=== PATIENT | female | born 1970 | race Caucasian/White ===

== ENCOUNTER 2016-07-18 09:57 | Day surgery (SDC) | payer OTHER ==
--- NOTE | ~2016-07-18 | EGD ---
EGD REPORT [facility] [address] [address] NAME: AIDA WALLS : [birth year] STATUS : REG [facility]#: [id number] AGE: 46 ADM/REG DATE : 07/18/16 MR#: [id number] REPORT SERV DATE: 07/18/16 DICTATED BY: KOLTON COMBS DATE: 07/18/16 REPORT STATUS : Draft TRANSCRIBED BY: [employer] DATE: 07/18/16 [facility] Patient Name: Aida Walls Date of : 1970 Attending MD: KOLTON COMBS MD Procedure Date No Time: 07/18/2016 Procedure: Upper GI endoscopy Indications: Abdominal pain in the right upper quadrant, Nausea Referring MD: SRAVANTHI PAGE III, MD, ROSINA CHERY Medicines: as per anesthesia Complications: No immediate complications. Procedure: Pre-Anesthesia Assessment: - ASA Grade Assessment: III - A patient with severe systemic disease. After obtaining informed consent, the endoscope was passed under direct vision. Throughout the procedure, the patient's blood pressure, pulse, and oxygen saturations were monitored continuously. The GIF H190 [id number] was introduced through the mouth, and advanced to the third part of duodenum. The upper GI endoscopy was accomplished without difficulty. The patient tolerated the procedure. Findings: The examined esophagus was normal. The entire examined stomach was normal. The cardia and gastric fundus were normal on retroflexion. The examined duodenum was normal. Impression: - Normal esophagus. - Normal stomach. - Normal examined duodenum. Recommendation: - Continue present medications. Procedure Code(s): --- Professional --- 01281, Esophagogastroduodenoscopy, flexible, transoral; diagnostic, including collection of specimen(s) by brushing or washing, when performed (separate procedure) Diagnosis Code(s): --- Professional --- R10.11, Right upper quadrant pain R11.0, Nausea EGD REPORT [facility] [address] [id number] NAME: AIDA WALLS : [birth year] [place]US : [place] [facility] [place] [id number] AGE: 46 ADM/REG DATE : 07/18/16 MR#: [id number] REPORT SERV DATE: 07/18/16 DICTATED BY: KOLTON COMBS. DATE: 07/18/16 REPORT STATUS : Draft TRANSCRIBED BY: [employer] DATE: 07/18/16 CPT copyright 2013 [employer]. All rights reserved. The codes documented in this report are preliminary and upon cold press operator review may be revised to meet current compliance requirements. KOLTON COMBS MD 07/18/2016 11:37 AM This report has been signed electronically. Number of Addenda: 0 Note Initiated On: 07/18/2016 11:24 AM Scope Withdrawal Time 0 hours 0 minutes 0 seconds [id number] [id number]
--- NOTE | ~2016-07-18 | EGD ---
EGD REPORT [facility] [address] [address] NAME: AIDA WALLS : [birth year] STATUS : [facility]#: [id number] AGE: 46 ADM/REG DATE : 07/18/16 MR#: [id number] REPORT SERV DATE: 07/18/16 DICTATED BY: KOLTON COMBS DATE: 07/18/16 REPORT STATUS : Draft TRANSCRIBED BY: [employer] DATE: 07/18/16 [facility] Patient Name: Aida Walls Date of : 1970 Attending MD: KOLTON COMBS MD Procedure Date No Time: 07/18/2016 Procedure: Colonoscopy Indications: Abdominal pain in the right lower quadrant, Rectal bleeding Referring MD: SRAVANTHI PAGE III, MD, ROSINA CHERY Medicines: as per anesthesia Complications: No immediate complications. Procedure: Pre-Anesthesia Assessment: - ASA Grade Assessment: III - A patient with severe systemic disease. After I obtained informed consent, the scope was passed under direct vision. Throughout the procedure, the patient's blood pressure, pulse, and oxygen saturations were monitored continuously. The PCF [id number] was introduced through the anus and advanced to the cecum, identified by appendiceal orifice and ileocecal valve. The colonoscopy was performed without difficulty. The patient tolerated the procedure. The quality of the bowel preparation was fair. Findings: The perianal and digital rectal examinations were normal. Internal hemorrhoids were found during endoscopy and were mild. Impression: - Internal hemorrhoids. Recommendation: - Repeat colonoscopy in 10 years for surveillance. Procedure Code(s): --- Professional --- 23744, Colonoscopy, flexible, proximal to splenic flexure; diagnostic, with or without collection of specimen(s) by brushing or washing, with or without colon decompression (separate procedure) Diagnosis Code(s): --- Professional --- K64.8, Other hemorrhoids R10.31, Right lower quadrant pain K62.5, Hemorrhage of anus and rectum EGD REPORT [facility] [address] [id number] NAME: AIDA WALLS : [birth year] STATUS : [facility]#: [id number] AGE: 46 ADM/REG DATE : 07/18/16 MR#: [id number] REPORT SERV DATE: 07/18/16 DICTATED BY: KOLTON COMBS. DATE: 07/18/16 REPORT STATUS : Draft TRANSCRIBED BY: [employer] DATE: 07/18/16 CPT copyright 2013 [employer]. All rights reserved. The codes documented in this report are preliminary and upon bill recapitulation clerk review may be revised to meet current compliance requirements. KOLTON COMBS MD 07/18/2016 11:54 AM This report has been signed electronically. Number of Addenda: 0 Note Initiated On: 07/18/2016 11:22 AM Scope Withdrawal Time 0 hours 5 minutes 41 seconds [id number] [id number]
[~2016-07-18 09:57] MED LIST: BIOTIN10 MG PO; COZ25 PO; DIABETA5 PO; ECHINACEA PO; ESTRACE1 MG PO; GLUMETZA500 MG PO; LANTUS SQ; LEVOTHYROXIN88 MCG PO; MOTRIN IB200 MG PO; PROZAC PO; VITC500 PO; WELLSR150 PO; ZOCOR40 PO
== END 2016-07-18 23:59 | disposition home or self-care (01) ==
LOC: DMU 09:57
PROVIDERS: Internal Medicine Gastroenterology
PROC: 0DJD8ZZ Inspection of Lower Intestinal Tract, Via Natural or Artificial Opening Endoscopic (ICD-10-PCS; principal; 2016-07-18 11:30)
PROC: 0DJ08ZZ Inspection of Upper Intestinal Tract, Via Natural or Artificial Opening Endoscopic (ICD-10-PCS; 2016-07-18 11:30)
DX: K64.8 Other hemorrhoids (principal); K62.5 Hemorrhage of anus and rectum; R10.11 Right upper quadrant pain; I10 Essential (primary) hypertension; F32.9 Major depressive disorder, single episode, unspecified; E78.5 Hyperlipidemia, unspecified; E11.9 Type 2 diabetes mellitus without complications; E78.00 Pure hypercholesterolemia, unspecified; E66.01 Morbid (severe) obesity due to excess calories; Z68.42 Body mass index [BMI] 45.0-49.9, adult; Z87.440 Personal history of urinary (tract) infections; Z88.0 Allergy status to penicillin; Z91.018 Allergy to other foods; Z79.818 Long term (current) use of other agents affecting estrogen receptors and estrogen levels; Z79.84 Long term (current) use of oral hypoglycemic drugs; Z79.4 Long term (current) use of insulin; Z79.899 Other long term (current) drug therapy; Z90.710 Acquired absence of both cervix and uterus; Z90.722 Acquired absence of ovaries, bilateral; Z98.890 Other specified postprocedural states
CPT/HCPCS: 82962; J2405

== ENCOUNTER 2016-07-27 11:00 | Emergency (ER) | payer OTHER ==
[2016-07-27 11:00] LABS: BASOPHILS 0.7 %; BASOPHILS ABSOLUTE 0.06 10/3/uL (0.0-0.16); EOSINOPHILS ABSOLUTE 0.16 10/3/uL (0.0-0.53); HEMATOCRIT 42.6 % (36.0-48.0); HEMOGLOBIN 14.8 g/dL (12.0-16.0); IMMATURE GRANULOCYTES 0.2 %; IMMATURE GRANULOCYTES ABSOLUTE 0.02 10/3/uL (0.0-0.11); LYMPHOCYTES 30.9 %; LYMPHOCYTES ABSOLUTE 2.52 10/3/uL (0.67-4.30); MEAN CORPUS HGB CONC 34.7 g/dL (32.0-36.0); MEAN CORPUSCULAR HEMOGLOB 29.1 pg (26.0-34.0); MEAN CORPUSCULAR VOLUME 83.7 fL (80-100); MEAN PLATELET VOLUME 9.3 fL (9.2-13.0); MONOCYTES 4.7 %; MONOCYTES ABSOLUTE 0.38 10/3/uL (0.21-1.20); NEUTROPHILS 61.5 %; NEUTROPHILS ABSOLUTE 5.02 10/3/uL (2.02-8.40); PLATELET COUNT 272 10/3/uL (150-400); RBC DISTRIBUTION WIDTH 13.4 % (12.0-16.0); RED CELL COUNT 5.09 10/6/uL (4.0-5.6); WHITE BLOOD CELLS 8.2 10/3/uL (4.5-10.5)
[2016-07-27 11:02] LABS: MANUAL DIFF NO %
[2016-07-27 11:07] LABS: INTERNATIONAL NORMAL RATI 1.2 UNITS (-); PROTIME (NOT ORD) 14.6 SEC (12.0-14.5)
[2016-07-27 11:18] LABS: BUN (BLOOD UREA NITROGEN) 12 MG/DL (6-23); CALCIUM, SERUM 9.2 MG/DL (8.5-10.4); CHEST PAIN PROFILE TAT 0 Hrs 22 Mins; CO2 (CARBON DIOXIDE) 27 MMOL/L (24-34); CREATININE 0.48 MG/DL (0.55-1.02); GFR AFRICAN AMERICAN 138 ML/MIN (>=60); GFR NON AFRICAN AMERICAN 119 ML/MIN (>=60); POTASSIUM, SERUM 4.1 MMOL/L (3.5-5.3); SODIUM, SERUM 140 MMOL/L (135-148); TROPONIN I <0.02 NG/ML (<0.05)
[2016-07-27 11:20] LABS: CHLORIDE, SERUM 106 MMOL/L (96-112); GLUCOSE, SERUM 135 MG/DL (60-99)
== END 2016-07-27 12:00 | disposition home or self-care (01) ==
LOC: ER 11:00
PROVIDERS: Nurse Practitioner
DX: R07.89 Other chest pain (principal); E11.9 Type 2 diabetes mellitus without complications; I10 Essential (primary) hypertension; Z88.0 Allergy status to penicillin; Z91.018 Allergy to other foods; Z79.899 Other long term (current) drug therapy; Z79.84 Long term (current) use of oral hypoglycemic drugs; Z79.4 Long term (current) use of insulin
CPT/HCPCS: 71010; 80048; 83735; 84484; 85025; 85610; 85730; 93005; 99285; A9270-GY